=== PATIENT | male | born 1955 | race Asian ===

== ENCOUNTER 2018-06-10 05:23 | Day surgery (SDC) | payer OTHER ==
[~2018-06-10] VITALS: Ht 170.2 cm; Wt 78.0 kg
[~2018-06-10 05:23] MED LIST: ASPIRIN81 M2 PO; IBUPROFEN200 M1 PO; NORVASC5 MG PO; RAMIPRIL5 MG PO
[2018-06-10 11:55] VITALS: BP 161/71
--- NOTE | 2018-06-11 17:07 | PATH ---
[facility] [address] [place] [address] PATHOLOGY RPT PROCEDURE Name: GERBER VELIZ Room #: [place] [facility] [place].R.#: [id number] Admission: 06/10/18 Date of : 57 Discharge: 06/10/18 Report #: [id number] Path Case #: [id number] [facility] Accession Number: [id number] . 01 Material submitted: . PART A: TUMOR LEFT LOWER LID-FS PART B: INFERIOR CONJUNCTIVAL MARGIN-LEFT EYE . 02 Diagnosis: A. 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 - TUMOR PRESENT AT INFERIOR CONJUNCTIVAL MARGIN. - Skin margins negative for malignancy. - TUMOR INFILTRATES INTO SKELETAL MUSCLE EXTENSIVELY. - FOCAL PERINEURAL INVASION IDENTIFIED. . B. Soft tissue, inferior conjunctival margin left eye, biopsy: - Predominantly fibrovascular connective tissue and nerves with no evidence of malignancy. (IUV/db; 06/11/18) LBQ/06/11/2018 . 02 Electronically signed: . Marsha Massey MD, Pathologist NPI- [id number] . 03 Gross description: . A. Specimen A is received fresh from the OR labeled with the patient's name, and "tumor left lower lid", consists of an oriented oval specimen with a horn on the surface. The specimen measures approximately 1.6 x 1.7 x 0.8 cm. The specimen is oriented as superior, lateral, inferior, and medial by Dr. Bagley, these are assigned 12:00, 3:00, 6:00, and 9:00 respectively. The 12-3-9:00, or the lateral border of the specimen is inked black, the entire inferior margin including the conjunctival margin is inked blue, the inferior to medial is inked green up to the superior surface. The superior surface/margin is inked orange. At this point, specimen is sectioned into three pieces and submitted for frozen section as FSA1, this is subsequently submitted for permanent sections as A1. . B. Specimen B is received fresh from the OR labeled with the patient's name, and "inferior conjunctival margin", consists of a thin red-gill soft tissue fragment measuring 1.1 cm x 0.3 cm x 0.2 cm. The specimen is submitted en face with the true margin facing up for frozen section as FSB1, subsequently submitted for permanent sections as B1. . FROZEN SECTION DIAGNOSIS (Marsha Massey MD) [place] [address] PATHOLOGY RPT PROCEDURE Name: GERBER VELIZ Room #: DEP [facility].#: [id number] Admission: 06/10/18 Date of : 57 Discharge: 06/10/18 Report #: [id number] Path Case #: [id number] . FSA1. Tumor, left lower lid, excision: - INFILTRATIVE SQUAMOUS CELL CARCINOMA. - Present at inferior/conjunctival margin. . FSB1. Inferior conjunctival margin: - No definite malignancy identified. - Soft tissue with chronic inflammation. . These findings are discussed with Dr. Rob Bagley in OR-6 at [facility] and a written report is placed in the patient's chart. . (IUV:knit tubing dyer; 06/10/2018) . Frozen section performed at [facility], [address] [place] [address], [place] [address]. /MBR . 02 Pathologist provided ICD-10: C44.1292 . 02 CPT . 678705, 166027, 223335, 856631 Specimen Comment: A courtesy copy of this report has been sent to Specimen Comment: [phone]. Specimen Comment: Report sent to Performed at: [address] [facility] [place] [id number] MD Salvador Schafer MD Phone: [phone] Performed at: [address], [place], [place] [id number] MD Marsha Massey MD Phone: [phone] Performed at: [address] [facility] [place] [id number] MD Salvador Schafer MD Phone: [phone]
== END 2018-06-10 14:15 | disposition home or self-care (01) ==
LOC: OR 05:23 → TBA 05:23 → OR 07:55
DX: C44.1292 Squamous cell carcinoma of skin of left lower eyelid, including canthus (principal); C44.329 Squamous cell carcinoma of skin of other parts of face; I10 Essential (primary) hypertension; Z79.899 Other long term (current) drug therapy
CPT/HCPCS: 50010; 50101; 50386; 50398; 51636; 56528; 56531; 62110; 62850; 64037; 70005

== ENCOUNTER 2018-07-29 05:23 | Day surgery (SDC) | payer OTHER ==
[~2018-07-29] VITALS: Ht 172.7 cm; Wt 78.0 kg
--- NOTE | ~2018-07-29 | O ---
[facility] [place] [address] OPERATIVE REPORT Name: GERBER VELIZ Room #: 150-2 [facility] M.R.#: [id number] Admission: 07/29/18 ������������������ Attend Phys: Rob Bagley MD Discharge: ������������������ Date of : 57 Report #: [id number] THIS REPORT FOR: //name// CC: Monica Bagley DATE OF SERVICE: 07/29/2018 PREOPERATIVE DIAGNOSIS: Squamous cell carcinoma of the left lower lid. POSTOPERATIVE DIAGNOSIS: Squamous cell carcinoma of the left lower lid. PROCEDURE: Second stage Clark reconstruction, left lower lid. SURGEON: Rob Bagley M.D. ASSISTANT AT SURGERY: None. ANESTHESIA: General. COMPLICATIONS: None. INDICATIONS FOR SURGERY: This is a pleasant 63-year-old gentleman who has previously undergone resection of the squamous cell carcinoma of his left lower lid with a first stage Clark reconstruction. He presents today for planned second stage reconstruction. Informed consent was obtained to include but not limited to the potential risk for loss of vision, bleeding, infection, failure to improve the problem, the potential need for further surgery or treatment. DESCRIPTION OF PROCEDURE: The patient was taken to the operating room where general anesthesia was administered. The left lower lid and left upper lid were anesthetized with Xylocaine with epinephrine mixed with Marcaine and Wydase administered transcutaneously and transconjunctivally. The patient was subsequently prepped and draped in the usual sterile fashion. A groove director was then placed behind the island pedicle from the upper lid to the lower lid. High temp cautery was then used to separate the islands. The left lower lid was then everted and a Stewart scissor used to smooth the posterior aspect of the lid and then the conjunctival surface was rolled over and coapted with cautery to leave no sutures exposed on the eyelid margin. The left upper lid was then everted and the donor stump was then amputated at its base with a Mark scissor. The wound was then cleaned and dressed with erythromycin ophthalmic ointment. [address] [address] OPERATIVE REPORT Name: GERBER VELIZ Room #: [address] [place] [address] M.R.#: [id number] Admission: 07/29/18 ������������������ Attend Phys: Rob Bagley MD Discharge: ������������������ Date of : 57 Report #: [id number] The patient subsequently transported to the recovery area having tolerated the procedures well with no anesthetic or operative complications being noted. ��������������������������������������������� ���������������������������������������� By: ��������������������������������������������� 0924 1032 Rob Bagley MD /nt
[~2018-07-29 05:23] MED LIST changes: +BISOPROLOL FUMAR5 M1 PO
[2018-07-29 08:32] VITALS: BP 152/73
== END 2018-07-29 10:30 | disposition home or self-care (01) ==
LOC: OR 05:23 → TBA 05:24 → OR 10:30
DX: C44.1292 Squamous cell carcinoma of skin of left lower eyelid, including canthus (principal); I10 Essential (primary) hypertension; Z79.82 Long term (current) use of aspirin; Z79.899 Other long term (current) drug therapy; Z98.890 Other specified postprocedural states
CPT/HCPCS: 50010; 50101; 50386; 50398; 62110; 62900; 64037; 70005